=== PATIENT | female | born 1940 | race Caucasian/White ===

== ENCOUNTER 2022-05-02 11:34 | Inpatient (IN) | payer MEDICAID, OTHER ==
[~2022-05-02] VITALS: Ht 172.7 cm; Wt 75.3 kg
--- NOTE | 2022-05-02 11:40 | NUR ---
Patient thomas from [facility] [employer] had syncopal episode while in the bathroom. no trauma. Connected to the monitor and pulse ox. Kept comfortable, will continue to monitor accordingly.
--- NOTE | 2022-05-02 11:42 | NUR ---
[facility] [phone]
[2022-05-02] MEDS ORDERED: IV NS 0.9% 1,000 ML BAG IV ONE (12:00)
--- NOTE | 2022-05-02 12:24 | NUR ---
covid swab, blood draw, and urine collected and sent to lab.
[2022-05-02 12:39] LABS: BASOPHILS % (AUTO) 0.4 % (0.0-2.0); EOSINOPHILS % (AUTO) 0.8 % (0.0-6.0); HEMATOCRIT 41 % (33-45); HEMOGLOBIN 13.1 g/dL (11.5-14.8); LYMPHOCYTES # (AUTO) 1.4 K/uL (0.8-4.8); MEAN CORPUSCULAR HGB CONC 32 g/dl (31.0-36.0); MEAN CORPUSCULAR VOLUME 88 fL (82-100); MONOCYTES # (AUTO) 0.3 K/uL (0.1-1.30); MONOCYTES % (AUTO) 4.2 % (2.0-12.0); NEUTROPHILS # (AUTO) 4.9 K/uL (1.8-8.9); NEUTROPHILS % (AUTO) 73.6 % (43.0-81.0); PLATELET COUNT (AUTO) 251 K/uL (150-450); RED BLOOD CELL COUNT(AUTO) 4.64 MIL/uL (4.0-5.2); WHITE BLOOD COUNT (AUTO) 6.7 K/uL (4.3-11.0)
[2022-05-02 12:44] LABS: BILIRUBIN,URINE NEGATIVE (NEGATIVE); COLOR,URINE YELLOW (YELLOW); LEUKOCYTE ESTERASE ,URINE TRACE (NEGATIVE); NITRITE, URINE NEGATIVE (NEGATIVE); PROTEIN,URINE NEGATIVE (NEGATIVE); UGLUCOSE NEGATIVE (NEGATIVE); UROBILINOGEN,URINE 0.2 EU/dL (0.2)
--- NOTE | 2022-05-02 13:02 | NUR ---
MOVE SHEET SUBMITTED.
--- NOTE | 2022-05-02 13:15 | NUR ---
[facility]) [phone].
[2022-05-02 13:26] LABS: BACTERIA,URINE Many /HPF (None Seen); RBC,URINE 0-2 /HPF (0-2); SQUAMOUS EPITHELIAL CELL,UR Few /HPF (None Seen)
[2022-05-02] MEDS ORDERED: QUET25TA PO (13:29)
[2022-05-02] MEDS ORDERED: METO25TA20 PO (13:29)
[2022-05-02] MEDS ORDERED: PROP150T2 PO (13:29)
[2022-05-02] MEDS ORDERED: LEVO137T2 PO (13:29)
[2022-05-02] MEDS ORDERED: SERT50TA12 PO (13:29)
[2022-05-02] MEDS ORDERED: CEFTRIAXONE 1GM BAG (ER ONLY) 1 GM/50 ML PIGGYBACK IV ONE (14:00)
[2022-05-02 14:10] LABS: CALCIUM, SERUM 9.1 mg/dL (8.5-10.1); CARBON DIOXIDE 26 mmol/L (21-32); CHLORIDE 108 mmol/L (98-107); CREATININE 1.2 mg/dL (0.6-1.3); GLUCOSE 145 mg/dL (74-106); POTASSIUM 3.6 mmol/L (3.5-5.1); SODIUM SERUM 142 mmol/L (136-145); UREA NITROGEN, BLOOD 17 mg/dL (7-18)
[2022-05-02] MEDS ORDERED: CEFTRIAXONE 1GM BAG (ER ONLY) 50 ML IV ONE (14:18)
[2022-05-02 14:23] LABS: ALANINE AMINOTRANSFERASE 17 U/L (12-78); ALKALINE PHOSPHATASE 91 U/L (46-116); ASPARTATE AMINOTRANSFERASE 14 U/L (15-37); BILIRUBIN,DIRECT 0.1 mg/dL (0.0-0.2); BILIRUBIN,TOTAL 0.5 mg/dL (0.2-1.0); TOTAL PROTEIN, SERUM 6.8 g/dL (6.4-8.2)
--- NOTE | 2022-05-02 14:46 | NUR ---
[facility] CALLED [employer] SUPER[employer]OR PAGED.
[2022-05-02] MEDS ORDERED: MAG HYDROX/AL HYDROX/SIMETH 30 ML UDC PO PRN (15:30)
[2022-05-02] MEDS ORDERED: IV NS 0.9% 1,000 ML IV PRN (15:30)
[2022-05-02] MEDS ORDERED: MAGNESIUM HYDROXIDE 30 ML UDC PO PRN (15:30)
[2022-05-02] MEDS ORDERED: ONDANSETRON HCL/PF 4 MG/2 ML VIAL IVP PRN (15:30)
[2022-05-02] MEDS ORDERED: Z GUARD REMEDY 4 OZ OINT TP PRN (15:30)
[2022-05-02] MEDS ORDERED: ACETAMINOPHEN 325 MG TABLET PO PRN (15:30)
[2022-05-02] MEDS ORDERED: METOPROLOL TARTRATE 25 MG TABLET PO SCH (17:00)
--- NOTE | 2022-05-02 19:40 | NUR ---
RECEIVED REPORT FROM ESTHELA TEAGUE. PATIENT IS FOR ADMSN DUE TO SYNCOPE. PATIENT IS AAOX0. WITH IV LINE ON RIGHT AC G20. ATTACHED TO MONITOR. VITALS CHECKED.
[2022-05-02] MEDS ORDERED: ENOXAPARIN SODIUM 40 MG/0.4 ML DISP.SYRIN SQ SCH (21:40)
[2022-05-02] MEDS: PROPAFENONE HCL 150 MG TABLET PO SCH (23:00)
[2022-05-02] MEDS ORDERED: ENOXAPARIN SODIUM 40 MG/0.4 ML DISP.SYRIN SQ ONE (23:29)
[2022-05-02] MEDS ORDERED: ACETAMINOPHEN 325 MG TABLET ONE (23:37)
--- NOTE | 2022-05-03 00:17 | NUR ---
REPORT GIVEN TO RN RR.
--- NOTE | 2022-05-03 00:30 | NUR ---
[employer] CHIEF NOTES RECEIVED PATIENT FROM ER VIA GURNEY, ACCOMPANIED BY RN AND MARKETING COMMUNICATIONS COORDINATOR. A/O X0-1, NON-VERBAL, RESPONDS TO NAME. BREATHING ON ROOM AIR, SATURATING WELL. VITAL SIGNS TAKEN, STABLE. IV ACCESS AT RIGHT AC #20, PATENT AND INTACT. ORIENTED TO ROOM SET-UP, CALL LIGHT WITHIN REACH. SAFETY MEASURES INITIATED. WILL CONTINUE TO MONITOR.
--- NOTE | 2022-05-03 00:35 | NUR ---
TRANSFERRED PT TO ROOM VIA ACLS
[2022-05-03 01:47] VITALS: BP 127/65
[2022-05-03 04:00] VITALS: BP 130/76
[2022-05-03 06:15] LABS: BASOPHILS # (AUTO) 0.1 K/uL (0.0-0.2); BASOPHILS % (AUTO) 0.9 % (0.0-2.0); EOSINOPHILS % (AUTO) 0.7 % (0.0-6.0); HEMATOCRIT 39 % (33-45); HEMOGLOBIN 12.7 g/dL (11.5-14.8); LYMPHOCYTES # (AUTO) 1.9 K/uL (0.8-4.8); LYMPHOCYTES % (AUTO) 29.7 % (20.0-44.0); MEAN CORPUSCULAR HGB CONC 33 g/dl (31.0-36.0); MEAN CORPUSCULAR VOLUME 85 fL (82-100); MONOCYTES # (AUTO) 0.6 K/uL (0.1-1.30); NEUTROPHILS # (AUTO) 3.9 K/uL (1.8-8.9); NEUTROPHILS % (AUTO) 59.7 % (43.0-81.0); PLATELET COUNT (AUTO) 226 K/uL (150-450); RED BLOOD CELL COUNT(AUTO) 4.55 MIL/uL (4.0-5.2); WHITE BLOOD COUNT (AUTO) 6.5 K/uL (4.3-11.0)
[2022-05-03 06:32] LABS: CALCIUM, SERUM 8.6 mg/dL (8.5-10.1); CARBON DIOXIDE 26 mmol/L (21-32); CHLORIDE 108 mmol/L (98-107); CREATININE 0.9 mg/dL (0.6-1.3); GLUCOSE 98 mg/dL (74-106); MAGNESIUM 2.2 mg/dL (1.8-2.4); PHOSPHORUS 3.6 mg/dL (2.5-4.9); POTASSIUM 3.6 mmol/L (3.5-5.1); SODIUM SERUM 141 mmol/L (136-145); UREA NITROGEN, BLOOD 15 mg/dL (7-18)
--- NOTE | 2022-05-03 06:37 | NUR ---
FLIGHT ENGINEER HELICOPTER CLOSING NOTES PATIENT IS LYING AWAKE IN BED, WATCHING TV.. A/O X0-1, NON-VERBAL, RESPONDS TO NAME. BREATHING ON ROOM AIR, SATURATING WELL. VITAL SIGNS TAKEN, STABLE. IV ACCESS AT RIGHT AC #20, INFUSING NS AT 75ML/H. ORIENTED TO ROOM SET-UP, CALL LIGHT WITHIN REACH. SAFETY MEASURES MAINTAINED. WILL ENDORSE TO NEXT SHIFT FOR CRUZ.
[2022-05-03 07:04] LABS: THYROID STIMULATING HORMONE 2.786 uIU/mL (0.358-3.74)
[2022-05-03] MEDS ORDERED: LEVOTHYROXINE SODIUM 137 MCG TABLET PO SCH (07:30)
[2022-05-03 08:23] VITALS: BP 155/76
[2022-05-03] MEDS: PROPAFENONE HCL 150 MG TABLET PO SCH (10:25)
[2022-05-03 12:00] VITALS: BP 134/97
[2022-05-03] MEDS ORDERED: CEFTRIAXONE 1 G in IV D5W 50 ML IV SCH (14:00)
[2022-05-03] MEDS ORDERED: CEPH500C2 PO (14:27)
[2022-05-03 16:28] VITALS: BP 149/84
--- NOTE | 2022-05-03 19:20 | NUR ---
Report given to incoming nurse with patient in stable condition. Vital signs stable. No distress noted. Discharge instructions given to medics. All patient belongings sent with her.
--- NOTE | 2022-05-03 19:43 | NUR ---
RN NOTE; PATIENT PICKED BY [facility] EMT SANJIV MANCINI,RM AIR SU WELL, NO SIGN SOB/DISTRESS NOTED,PT STABLE,AOX1 CONFUSED,IV LINE REMOVED NO BLEEDING NOTED,BELONGING ENDORSED TO [facility].
== END 2022-05-03 19:35 | disposition hospice, home (50) | DRG 73 ==
LOC: ER 11:36 → TELE 21:38
PROVIDERS: ADMIT Internal Medicine; ATTEND Nurse Practitioner Family
DX: G90.8 Other disorders of autonomic nervous system (principal); E43 Unspecified severe protein-calorie malnutrition; G93.41 Metabolic encephalopathy; N39.0 Urinary tract infection, site not specified; F02.83 Dementia in other diseases classified elsewhere, unspecified severity, with mood disturbance; E87.20 Acidosis, unspecified; G90.3 Multi-system degeneration of the autonomic nervous system; Z20.822 Contact with and (suspected) exposure to COVID-19; G30.9 Alzheimer's disease, unspecified; G20 Parkinson's disease; E11.9 Type 2 diabetes mellitus without complications; Z79.899 Other long term (current) drug therapy; Z86.79 Personal history of other diseases of the circulatory system; E03.9 Hypothyroidism, unspecified; F32.9 Major depressive disorder, single episode, unspecified; F29 Unspecified psychosis not due to a substance or known physiological condition; E88.09 Other disorders of plasma-protein metabolism, not elsewhere classified; B96.89 Other specified bacterial agents as the cause of diseases classified elsewhere; J32.0 Chronic maxillary sinusitis; Z51.5 Encounter for palliative care
CPT/HCPCS: 36415; 70450-TC; 71045-TC; 80048-TC; 80076-TC; 81001; 83605-TC; 83735-TC; 83880; 84100-TC; 84443-TC; 84484-TC; 85025-TC; 87040-TC; 87081-TC; 87086-TC; 93307-TC; C9803; G0378; J0696; J1650; J7030; J7060